=== PATIENT | female | born 1980 | race Caucasian/White ===

== ENCOUNTER 2016-12-01 11:50 | Emergency (ER) | payer OTHER ==
[2016-12-01 12:04] VITALS: BP 135/87
--- NOTE | 2016-12-01 12:16 | UC ---
Laceration HPI - HPI Summary HPI Summary: R lateral lower leg stabbed by shard of broken glass poking out of the trash a couple hours ago. Pt cleaned wound and applied butterflies and a large bandage. Presents for care because she is concerned about pain level -- has been throbbing for a little while. - History Of Current Complaint Chief Complaint: UCLaceration Stated Complaint: LEG LACERATION Time Seen by Provider: 12/01/16 12:03 Hx Obtained From: Patient Hx Last Menstrual Period: 11/11/16 Laceration Location: Calf Mechanism Of Injury: Sharp Trauma Onset/Duration: Sudden Onset Severity: Mild - Allergies/Home Medications Allergies/Adverse Reactions: Allergies Allergy/AdvReac Type Severity Reaction Status Date / Time No Known Allergies Allergy Verified 12/01/16 12:04 PMH/Surg Hx/FS Hx/Imm Hx - Additional Past Medical History Additional PMH: Pt had Tdap in 2016 Previously Healthy: Yes - Surgical History Surgical History: Yes Surgery Procedure, Year, and Place: - Family History Known Family History: Negative: Blood Disorder - Social History Lives: With Family Alcohol Use: Occasionally Substance Use Type: None Smoking Status (MU): Former Smoker Have You Smoked in the Last Year: No - Immunization History Most Recent Influenza Vaccination: 02/25 Most Recent Tetanus Shot: 05/21/15 Most Recent Pneumonia Vaccination: unsure Review of Systems Constitutional: Negative Skin: Other - R leg lac Eyes: Negative ENT: Negative Respiratory: Negative Cardiovascular: Negative Gastrointestinal: Negative Genitourinary: Negative Motor: Negative Neurovascular: Negative Musculoskeletal: Negative Neurological: Negative Psychological: Negative All Other Systems Reviewed And Are Negative: Yes Physical Exam Triage Information Reviewed: Yes Appearance: Well-Appearing, No Pain Distress, Well-Nourished Vital Signs: Initial Vital Signs Temp 97.6 F 12/01/16 11:59 Pulse 67 12/01/16 11:59 Resp 16 12/01/16 11:59 BP 135/87 12/01/16 11:59 Pulse Ox 100 12/01/16 11:59 Vital Signs Reviewed: Yes Eye Exam: Normal Eyes: Positive: Conjunctiva Clear ENT Exam: Normal ENT: Positive: Normal ENT inspection, Hearing grossly normal, Pharynx normal, TMs normal Neck exam: Normal Neck: Positive: Supple Respiratory Exam: Normal Cardiovascular Exam: Normal Cardiovascular: Positive: RRR, No Murmur Musculoskeletal Exam: Normal Musculoskeletal: Positive: Strength Intact, ROM Intact Neurological: Positive: Alert Psychological Exam: Normal Skin Exam: Other - 1.5cm lac to R lower leg Laceration Repair - Laceration Repair 1 Description: Linear Laceration Size After Repair: Length (cm) - 1.5, Width (mm) - 0, Depth (mm) - 0 Modified For Repair: No Cleansing Completed Via Routine Prep: Yes Irrigation With Pressure Irrigation Device: Yes Closure Material: Skin Adhesive, SteriStrips Closure Method: Single Layer Suture Of: Skin Laceration Course/Dx - Differential Dx - Laceration/Wound Provider Diagnoses: R lower leg laceration, glue and steris Discharge - Discharge Plan Condition: Stable Disposition: HOME Patient Education Materials: Steristrjohn (ED) Additional Instructions: While the sterisrips can stay on after getting damp, I recommend you try to protect them from direct exposure to water for at least 5-7 days. Let them fall off on their own. If they fall off early, simply apply a bandage over the area and allow to heal.
[2016-12-01] MEDS ORDERED: Acetaminophen TAB* 325 MG PO ONE (12:32)
== END 2016-12-01 12:36 | disposition home or self-care (01) ==
LOC: UCEAST 11:50
DX: S81.811A Laceration without foreign body, right lower leg, initial encounter (principal); Z87.891 Personal history of nicotine dependence; W25.XXXA Contact with sharp glass, initial encounter
CPT/HCPCS: 12001; 99212; A9270-GY; G0463